=== PATIENT | female | born 1970 | race Caucasian/White ===

== ENCOUNTER 2018-07-02 10:50 | Inpatient (IN) ==
[~2018-07-02 10:50] MED LIST: CELECOXIB 200 MG CAPSULE PO SCH; PREGABALIN 75 MG CAPSULE PO SCH; ceFAZolin 1 GM VIAL IV SCH; oxyCODONE 10 MG TAB.ER.12H PO SCH
[2018-07-02 12:00] LABS: Appearance,Urine HAZY; Bacteria,Urine FEW /hpf (0); Bilirubin,Urine NEG (NEG); Color,Urine YELLOW; Glucose,Urine (UA) NEGATIVE (NEG); Leukocyte Esterase,Urine 25 /uL (NEG); Mucus,Urine FEW /hpf (0); Protein,Urine NEG (NEG); Specific Gravity,Urine 1.008 (1.000-1.035); Urine Blood NEG mg/dL (<0.03); Urine RBC 0 /hpf (0-1); Urine Squamous Epithelial Cell 1 /hpf (0-4); Urine WBC 4 /hpf (0-4); Urobilinogen,Urine NEG (NEG)
[2018-07-02 12:36] LABS: Basophils # (Auto) 0 K/mcL (0.0-0.3); Basophils % (Auto) 0.6 % (0.0-2.0); Eosinophils # (Auto) 0.3 K/mcL (0.0-0.7); Eosinophils % (Auto) 5.1 % (0.0-7.0); Granulocytes % (Auto) 65.8 % (38.0-78.0); Lymphocytes # (Auto) 1.1 K/mcL (1.5-4.8); Lymphocytes % (Auto) 19.8 % (15.5-49.0); Mean Cell Volume 90.4 fL (80.0-100.0); Mean Corpuscular HGB Conc 32.8 g/dL (31.0-36.0); Mean Corpuscular Hemoglobin 29.6 pg (26.0-34.0); Monocytes # (Auto) 0.5 K/mcL (0.1-0.9); Monocytes % (Auto) 8.7 % (1.0-12.0); Platelet Count 273 K/mcL (140-440); RBC 3.99 M/mcL (4.00-5.20)
[2018-07-02 13:01] LABS: Blood Urea Nitrogen 4 mg/dl (6-20)
[2018-07-02] MEDS ORDERED: IPRATROPIUM/ALBUTEROL 3 ML AMPUL.NEB NEB ONE (13:52)
[2018-07-02] MEDS ORDERED: LIDOCAINE HCL/PF 100 MG/5 ML SYRINGE IV ONE (15:00)
[2018-07-02] MEDS ORDERED: KETAMINE 100 MG/ML ML IV ONE (15:00)
[2018-07-02] MEDS ORDERED: ePHEDrine 50 MG/ML AMPUL IV ONE (15:00)
[2018-07-02] MEDS ORDERED: MIDAZOLAM 2 MG/2 ML VIAL IV ONE (15:00)
[2018-07-02] MEDS ORDERED: SUCCINYLCHOLINE 20 MG/ML ML IV ONE (15:00)
[2018-07-02] MEDS ORDERED: fentaNYL 250 MCG/5 ML VIAL IV ONE (15:00)
[2018-07-02] MEDS ORDERED: DEXAMETHASONE 10 MG/ML VIAL IV ONE (15:00)
[2018-07-02] MEDS ORDERED: PROPOFOL 200 MG/20 ML VIAL IV ONE (15:00)
[2018-07-02] MEDS ORDERED: ONDANSETRON 4 MG/2 ML VIAL IV ONE (15:00)
[2018-07-02] MEDS ORDERED: GENTAMICIN SULFATE 800 MG/20 ML VIAL IR ONE (15:45)
[2018-07-02] MEDS ORDERED: ePHEDrine 50 MG/ML AMPUL IV PRN (16:14)
[2018-07-02] MEDS ORDERED: ACETAMINOPHEN 1,000 MG/100 ML BOTTLE IV ONE (16:14)
[2018-07-02] MEDS ORDERED: METHOCARBAMOL 1,000 MG/10 ML VIAL IV PRN (16:14)
[2018-07-02] MEDS ORDERED: PROMETHAZINE 25 MG/ML VIAL IV PRN (16:14)
[2018-07-02] MEDS ORDERED: HYDROmorphone 2 MG/ML VIAL IV PRN (16:14)
[2018-07-02] MEDS ORDERED: MEPERIDINE 25 MG/ML SYRINGE IV PRN (16:14)
[2018-07-02] MEDS ORDERED: ATROPINE SULFATE 0.4 MG/ML VIAL IV PRN (16:14)
[2018-07-02] MEDS ORDERED: diphenhydrAMINE 50 MG/ML VIAL IV PRN (16:14)
[2018-07-02] MEDS ORDERED: FLUMAZENIL 0.1 MG/ML ML IV PRN (16:14)
[2018-07-02] MEDS ORDERED: NALOXONE HCL 0.4 MG/ML VIAL IV PRN (16:14)
[2018-07-02] MEDS ORDERED: METOPROLOL TARTRATE 5 MG/5 ML VIAL IV PRN (16:14)
[2018-07-02] MEDS ORDERED: IPRATROPIUM/ALBUTEROL 3 ML AMPUL.NEB NEB PRN (16:14)
[2018-07-02] MEDS ORDERED: ONDANSETRON 4 MG/2 ML VIAL IV PRN ×2 (16:14→16:25)
--- NOTE | 2018-07-02 16:23 | Brief Operative Note ---
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
--- NOTE | 2018-07-02 16:24 | Discharge Summary ---
Ortho Discharge - TSA - Patient Instructions Diet: Regular Diet Activity: non weight bearing Total Shoulder Protocol: Leave immobilizer in place except for bathing and ROM. Abduction pillow. Continue to wear sling until seen by physician. Codman Pendulum : These exercises use momentum produced by your body to move your shoulder joint. Bend your knees and shift your weight to your front leg, then back, allowing your arm to swing in the same directions. Using the same technique, alternately shift your weight between your right and left legs, allowing your arm to swing from side to side. These exercises are also performed in counterclockwise and clockwise circular motions. Typically these exercises are performed several times per day, for a set number repetitions or minutes, such as 20 times in a row or 5 minutes at a time. Dressing Care: May shower in 2 days - Follow Up Plan Disposition: Home, Self-Care Prognosis: Good Rehab Potential: Good I certify that the patient requires SNF services: No Overall status at discharge: patient is progressing back to baseline
[2018-07-02] MEDS ORDERED: POLYETHYLENE GLYCOL 3350 17 GM PACKET PO PRN (16:25)
[2018-07-02] MEDS ORDERED: BENZOCAINE/MENTHOL 1 LOZENGE PO PRN (16:25)
[2018-07-02] MEDS ORDERED: METHOCARBAMOL 750 MG TABLET PO PRN (16:25)
[2018-07-02] MEDS ORDERED: MAGNESIUM HYDROXIDE 30 ML ORAL.SUSP PO PRN (16:25)
[2018-07-02] MEDS ORDERED: ONDANSETRON ODT 4 MG TABLET SL PRN (16:25)
[2018-07-02] MEDS ORDERED: BISACODYL 10 MG SUPP.RECT PR PRN (16:25)
[2018-07-02] MEDS ORDERED: TRANEXAMIC ACID 1,000 MG/10 ML VIAL IV ONE (16:25)
[2018-07-02] MEDS ORDERED: FLEETS ADULT ENEMA PR PRN (16:25)
[2018-07-02] MEDS: HYDROcodone/APAP 10/325MG TABLET PO PRN ×3 (17:45→23:50)
[2018-07-02] MEDS: 0.9 % SODIUM CHLORIDE 1,000 ML IV SCH (17:49)
[2018-07-02] MEDS ORDERED: SENNOSIDES 1 TABLET PO SCH (21:00)
[2018-07-02] MEDS: DOCUSATE SODIUM 100 MG CAPSULE PO SCH (21:29)
[2018-07-02] MEDS: 0.9 % SODIUM CHLORIDE 10 ML SYRINGE IV SCH (21:31)
[2018-07-02] MEDS: ceFAZolin 1 GM VIAL IV SCH (22:47)
[2018-07-03] MEDS: 0.9 % SODIUM CHLORIDE 1,000 ML IV SCH ×2 (02:21→09:36)
[2018-07-03] MEDS: HYDROcodone/APAP 10/325MG TABLET PO PRN ×3 (04:37→12:55)
[2018-07-03] MEDS: 0.9 % SODIUM CHLORIDE 10 ML SYRINGE IV SCH (04:38)
--- NOTE | 2018-07-03 07:21 | Orthopedic Progress Note ---
Subjective Patient information: Note initiated : 07/03/18 at 7:19 am Service Date, if different from initiated Date: [] Patient: Huma Lawrence 48 y/o F admitted on 07/02/18 for Reverse Total Shoulder Arthroplasty Revision Right. Chief Complaint: [POD #1 s/p left reverse total shoulder revision Patient doing very well today. Has moderate pain but denies CP, SOB, numbness, tingling. Was concerned because she rolled over on her left shoulder.] Objective Vital signs: Vital Signs Temp Pulse Resp BP BP Pulse Ox 07/03/18 06:33 98 F 18 141/84 92 07/03/18 03:46 98.1 F 82 18 151/85 94 07/03/18 02:30 93 H 158/94 83 L 07/03/18 00:00 98.1 F 84 18 150/85 95 07/02/18 22:18 82 155/87 97 07/02/18 22:03 85 146/89 95 07/02/18 21:04 92 H 129/79 88 L 07/02/18 20:50 92 H 136/85 90 07/02/18 20:18 95 H 156/86 90 07/02/18 20:03 94 H 149/83 91 07/02/18 19:18 96 H 146/82 93 07/02/18 19:03 92 H 150/86 92 07/02/18 18:48 96 H 144/83 92 07/02/18 17:48 98.3 F 98 H 137/77 92 07/02/18 17:33 98.3 F 97 H 142/82 90 07/02/18 17:19 98.9 F 103 H 13 101/58 94 07/02/18 17:04 98.8 F 103 H 14 143/56 92 07/02/18 16:59 111 H 17 131/64 92 07/02/18 16:54 118 H 22 113/70 92 07/02/18 16:49 98.2 F 100 H 16 140/72 96 07/02/18 12:00 98.7 F 85 18 125/69 92 Intake and Output 07/02/18 07/03/18 07/03/18 21:59 05:59 13:59 Intake Total 2680 / 2680 2140 / 2140 Output Total 900 / 900 2650 / 2650 800 / 800 Balance 1780 / 1780 -510 / -510 -800 / -800 Intake: IV 100 / 100 1300 / 1300 Sodium Chloride 0.9% 1,000 ml @ 1300 / 1300 125 mls/hr IV .Q8H [facility] Rx#: [id number] Oral 1280 / 1280 840 / 840 IV - Manual Only 1300 / 1300 Output: Void Amount 650 / 650 2650 / 2650 800 / 800 Estimated Blood Loss 250 / 250 Other: Urine Appearance Uretheral ([place]) Clear Urine Color Bright Yellow Uretheral ([place]) Pale Urine Odor Normal # Voids 1 1 Weight 207 lb Intake & Output: Intake & Output 07/02/18 07/03/18 07/03/18 21:59 05:59 13:59 Intake Total 2680 / 2680 2140 / 2140 Output Total 900 / 900 2650 / 2650 800 / 800 Balance 1780 / 1780 -510 / -510 -800 / -800 Weight 207 lb Intake: IV 100 / 100 1300 / 1300 Sodium Chloride 0.9% 1,000 ml @ 1300 / 1300 125 mls/hr IV .Q8H [facility] Rx#: [id number] Oral 1280 / 1280 840 / 840 IV - Manual Only 1300 / 1300 Output: Void Amount 650 / 650 2650 / 2650 800 / 800 Estimated Blood Loss 250 / 250 Other: Urine Appearance Uretheral ([place]) Clear Urine Color Bright Yellow Uretheral ([place]) Pale Urine Odor Normal # Voids 1 1 Incision: Yes healing, No draining, No red, No swollen, No inflamed, Yes clean and dry Incision clean and dry: Yes Dressing: Yes clean, Yes dry, Yes intact, Yes splint in place Weight bearing status: non Neurological exam IM: Yes alert, Yes oriented X3, Yes motor sensory intact, Yes neurovascular intact Extremities exam IM: Yes neurovascular intact - Periperhal Pulses Peripheral pulses: 2+: radial (L), radial (R) - Diagnostic Results Shoulder x-ray: image reviewed (AP of left shoulder: reverse total shoulder in good alignment. Components articulating well) - Labs CBC & BMP: 07/03/18 04:30 07/02/18 11:30 Labs: 07/03/18 07/02/18 04:30 11:30 Hgb 10.9 L 11.8 L Hct 33.0 L 36.1 Assessment and Plan (1) History of shoulder surgery POD #1 s/p left reverse total shoulder arthroplasty: -d/c to home today, lives at alf -pain control -NWB in brace at all times -may wiggle fingers frequently. Do not remove splint unless to bath or dress. No PT -karri. Keep CDI with dressing -f/u in 2 weeks in office for post op Status: Acute
--- NOTE | 2018-07-03 07:35 | Operative Note ---
DATE OF OPERATION: 07/02/2018 PREOPERATIVE DIAGNOSIS: Left shoulder instability status post reverse total shoulder arthroplasty. POSTOPERATIVE DIAGNOSIS: Left shoulder instability status post reverse total shoulder arthroplasty with hematoma. PROCEDURES: 1. Left shoulder revision reverse total shoulder arthroplasty. 2. Left shoulder irrigation and debridement with hematoma evacuation. SURGEON: Christian George MD CRISIS WORKER: Ashley Loja PA-C ANESTHESIA: General. IMPLANTS: Delta Xtend glenosphere 42 mm Eccentric, Delta Xtend humeral spacer +9 x2, Delta Xtend humeral polyethylene cup 42 +6 retentive. FINDINGS: 1. Unstable reverse total shoulder arthroplasty with no evidence of loosening components. 2. Large hematoma. No evidence of infection. INDICATION: The patient is a 48-year-old female who has had a previous reverse total shoulder arthroplasty that went on to dislocate. We did open reduction. It was felt to be stable but it redislocated and she has developed a hematoma. We talked about different options and felt that a revision reverse total shoulder arthroplasty would be our best bet at this point. She elected to proceed. The risks and benefits were discussed with the patient in detail including, but not limited to, the risks of anesthesia, problems with the heart or lungs related to anesthesia, infection, compromise or injury to the nerves and blood vessels, deep venous thrombosis, pulmonary embolism, pneumonia, continued pain after surgery, worsening pain or symptoms after surgery, swelling, loss of motion, re-tear or failure of repair site, and need for repeat surgery. OPERATIVE NOTE: The patient was seen preoperatively. Site was signed and all questions were answered. She was then transferred to the operating room and given 2 grams Ancef and general anesthesia was administered without complication. She was placed in the beach chair position with all prominences well-padded. She was prepped and draped in the usual sterile fashion from the fingers up to the neck. We made an incision through her old anterior based incision through the skin and subcutaneous tissue and bone windows were created medially and laterally. We dissected down and split the deltopectoral repair and came down to a large hematoma. This hematoma was evacuated and thoroughly irrigated. The shoulder was anteriorly dislocated. I removed the two 9 mm stacks as well as the polyethylene. We placed retractors and came down to the glenosphere. The glenosphere was removed. We inspected and the metaglene was found to be well fixed. We thoroughly irrigated with saline and IrriSept. I then placed a 42 mm eccentric glenosphere with the eccentric facing anterior. We then trialed with a +9 humeral spacer x2 as well as a +6 42 retentive Delta Xtend humeral polyethylene cup. This gave us excellent stability and full range of motion of the shoulder with moderate but not over-tension of the deltoid. I then placed the final implant, again irrigating. We took the shoulder through range of motion and it had good range of motion and excellent stability. We closed the deltopectoral interval with 0 Vicryl. The subcutaneous layer was closed in layers with 3-0 Monocryl and karri in the skin. She was dressed with Xeroform 4x4s, ABD and Metapore tape. She was placed into a shoulder immobilizer. She was then extubated, transferred to a stretcher and taken to the PACU in stable condition. SPECIMENS: None. COMPLICATIONS: None. DRAINS: None. DISPOSITION: To Post-Anesthetic Care Unit in stable condition. [email or web address] Job ID: [id number] Doc ID: [id number] Eric George MD
[2018-07-03] MEDS: ceFAZolin 1 GM VIAL IV SCH (07:36)
--- NOTE | 2018-07-03 08:32 | XRay Report ---
CLINICAL INFORMATION: Postsurgical follow-up TECHNIQUE: AP and Y views of the left shoulder COMPARISON: Previous postoperative evaluation dated 06/17/2018 FINDINGS: Status post left reverse shoulder arthroplasty. Patient has apparently undergone revision since prior postoperative examination. There are surgical karri overlying the left shoulder. Alignment appears anatomic IMPRESSION: Status post left reverse shoulder arthroplasty Interpreted and Authenticated by: Gurdeep Mooney 07/03/18
[2018-07-03] MEDS: DOCUSATE SODIUM 100 MG CAPSULE PO SCH (09:35)
== END 2018-07-03 14:30 | disposition home or self-care (01) | DRG 483 ==
LOC: MEDSUR 10:50
PROVIDERS: ADMIT Orthopaedic Surgery Sports Medicine; ATTEND Orthopaedic Surgery Sports Medicine

== ENCOUNTER 2018-11-24 12:49 | Inpatient (IN) ==
[2018-11-16 11:36] LABS: Basophils # (Auto) 0 K/mcL (0.0-0.3); Basophils % (Auto) 0.5 % (0.0-2.0); Eosinophils # (Auto) 0 K/mcL (0.0-0.7); Eosinophils % (Auto) 0.7 % (0.0-7.0); Granulocytes % (Auto) 59.1 % (38.0-78.0); Lymphocytes # (Auto) 1.8 K/mcL (1.5-4.8); Lymphocytes % (Auto) 32.3 % (15.5-49.0); Mean Cell Volume 88.9 fL (80.0-100.0); Mean Corpuscular HGB Conc 32.7 g/dL (31.0-36.0); Monocytes # (Auto) 0.4 K/mcL (0.1-0.9); Monocytes % (Auto) 7.4 % (1.0-12.0); Platelet Count 347 K/mcL (140-440); RBC 4.84 M/mcL (4.00-5.20); Red Cell Distribution Width 14.1 % (11.5-14.5)
[2018-11-16 11:42] LABS: Blood Urea Nitrogen 5 mg/dl (6-20)
[2018-11-16 12:16] LABS: Appearance,Urine HAZY; Bilirubin,Urine NEG (NEG); Color,Urine YELLOW; Glucose,Urine (UA) NEGATIVE (NEG); Leukocyte Esterase,Urine NEG /uL (NEG); Protein,Urine NEG (NEG); Specific Gravity,Urine 1.015 (1.000-1.035); Urine Blood NEG mg/dL (<0.03); Urobilinogen,Urine NEG (NEG)
[2018-11-24] MEDS ORDERED: fentaNYL 100 MCG/2 ML VIAL IV ONE (14:45)
[2018-11-24] MEDS ORDERED: ePHEDrine 50 MG/ML AMPUL IV ONE (14:45)
[2018-11-24] MEDS ORDERED: DEXAMETHASONE 10 MG/ML VIAL IV ONE (14:45)
[2018-11-24] MEDS ORDERED: PHENYLEPHRINE 10 MG/ML VIAL IV ONE (14:45)
[2018-11-24] MEDS ORDERED: SUCCINYLCHOLINE 20 MG/ML ML IV ONE (14:45)
[2018-11-24] MEDS ORDERED: PROPOFOL 200 MG/20 ML VIAL IV ONE (14:45)
[2018-11-24] MEDS ORDERED: KETAMINE 100 MG/ML ML IV ONE (14:45)
[2018-11-24] MEDS ORDERED: ONDANSETRON 4 MG/2 ML VIAL IV ONE (14:45)
[2018-11-24] MEDS ORDERED: GLYCOPYRROLATE 0.2 MG/ML VIAL IV ONE (14:45)
[2018-11-24] MEDS ORDERED: MIDAZOLAM 2 MG/2 ML VIAL IV ONE (14:45)
[2018-11-24] MEDS ORDERED: TRANEXAMIC ACID 1,000 MG/10 ML VIAL IV ONE ×2 (14:45→16:44)
[2018-11-24] MEDS ORDERED: LIDOCAINE HCL/PF 100 MG/5 ML SYRINGE IV ONE (14:45)
[2018-11-24] MEDS ORDERED: METHOCARBAMOL 1,000 MG/10 ML VIAL IV PRN (15:24)
[2018-11-24] MEDS ORDERED: ONDANSETRON 4 MG/2 ML VIAL IV PRN (15:24)
[2018-11-24] MEDS ORDERED: BENZOCAINE/MENTHOL 1 LOZENGE PO PRN (15:24)
[2018-11-24] MEDS ORDERED: NALOXONE HCL 0.4 MG/ML VIAL IV PRN (15:24)
[2018-11-24] MEDS ORDERED: LACTATED RINGERS 250 ML IV PRN (15:24)
[2018-11-24] MEDS ORDERED: ACETAMINOPHEN 1,000 MG/100 ML BOTTLE IV ONE (15:24)
[2018-11-24] MEDS ORDERED: IPRATROPIUM/ALBUTEROL 3 ML AMPUL.NEB NEB PRN ×2 (15:24→15:58)
[2018-11-24] MEDS ORDERED: fentaNYL 100 MCG/2 ML VIAL IV PRN (15:24)
[2018-11-24] MEDS ORDERED: FLUMAZENIL 0.1 MG/ML ML IV PRN (15:24)
[2018-11-24] MEDS ORDERED: LACTATED RINGERS 1,000 ML IV SCH (15:30)
--- NOTE | 2018-11-24 15:57 | Brief Operative Note ---
Pre-op diagnosis: left reverse tsa instability Post-op diagnosis: same Procedure: revision left reverse tsa Grafts/Implants: Yes Anesthesia: GETA Complications: none Surgeon: Gurdeep George Divemaster: Ashley Loja Estimated blood loss (cc): 100 Specimens Removed/Pathology: none sent Condition: stable Disposition: PACU
[2018-11-24] MEDS ORDERED: CALCIUM CARBONATE 500 MG TAB.CHEW CHEWED PRN (15:58)
[2018-11-24] MEDS ORDERED: POLYETHYLENE GLYCOL 3350 17 GM PACKET PO PRN (15:58)
[2018-11-24] MEDS ORDERED: ALBUTEROL SULFATE 1 PUFF INHALER INH PRN (15:58)
[2018-11-24] MEDS ORDERED: ZOLPIDEM 5 MG TABLET PO PRN (15:58)
[2018-11-24] MEDS ORDERED: traZODone HCL 50 MG TABLET PO PRN (15:58)
[2018-11-24] MEDS ORDERED: FLUTICASONE PROPIONATE SPRAY.NAS NS PRN (15:58)
[2018-11-24] MEDS ORDERED: KETOCONAZOLE 2% TOP CRM 15GM TUBE TOPICAL PRN (15:58)
--- NOTE | 2018-11-24 15:58 | Discharge Summary ---
Ortho Discharge - TSA - Patient Instructions Diet: Regular Diet Activity: non weight bearing Total Shoulder Protocol: Leave immobilizer in place except for bathing and ROM. Abduction pillow. Continue to wear sling until seen by physician. Codman Pendulum : These exercises use momentum produced by your body to move your shoulder joint. Bend your knees and shift your weight to your front leg, then back, allowing your arm to swing in the same directions. Using the same technique, alternately shift your weight between your right and left legs, allowing your arm to swing from side to side. These exercises are also performed in counterclockwise and clockwise circular motions. Typically these exercises are performed several times per day, for a set number repetitions or minutes, such as 20 times in a row or 5 minutes at a time. Dressing Care: May shower in 2 days - Follow Up Plan Follow Up Appointments: Ashley Loja PA-C [Physician Logistics Clerk] - 12/09/18 2:00 pm Disposition: Home, Self-Care Prognosis: Good Rehab Potential: Good I certify that the patient requires SNF services: No Overall status at discharge: patient is progressing back to baseline
[2018-11-24] MEDS ORDERED: GENTAMICIN SULFATE 800 MG/20 ML VIAL IR ONE (16:29)
--- NOTE | 2018-11-24 16:57 | Operative Note ---
DATE OF OPERATION: 11/24/2018 PREOPERATIVE DIAGNOSIS: Left reverse total shoulder arthroplasty instability. POSTOPERATIVE DIAGNOSIS: Left reverse total shoulder arthroplasty instability. PROCEDURE: Revision left reverse total shoulder arthroplasty. SURGEON: Eric George M.D. TAILING MACHINE OPERATOR SURGEON: Ashley Loja PA-C. ANESTHESIA: General. ESTIMATED BLOOD LOSS: 100 mL. COMPLICATIONS: None noted. SPECIMENS REMOVED: Culture x1. DRAINS: None. IMPLANTS: DePuy Delta XTEND glenosphere 42 mm eccentric; DePuy Delta XTEND humeral spacer +9 mm x2; DePuy Delta XTEND humeral polyethylene cup 42, +6 standard. INDICATIONS: The patient has had multiple problems status post reverse total shoulder arthroplasty with instability. After the last revision, she has undergone another dislocation x2. We talked about changing alignment to try to stabilize the shoulder versus converting to hardware removal and [place] in the shoulder. She wanted to proceed with the first option which I think is reasonable at this point. After a long discussion about treatment options, the patient elected to proceed with a revision reverse total shoulder arthroplasty. The risks and benefits were discussed with the patient in detail including, but not limited to, the risks of anesthesia, problems with the heart or lungs related to anesthesia, infection, compromise or injury to the nerves and blood vessels, deep venous thrombosis, pulmonary embolism, pneumonia, continued pain after surgery, worsening pain or symptoms after surgery, swelling, loss of motion, instability, fracture, arm length discrepancy, and need for repeat surgery. DESCRIPTION OF PROCEDURE: The patient was seen in the preanesthesia waiting room where all questions were answered and the correct side and site were identified and marked. The patient was transferred to the operating room and administered the anesthetic and given preoperative antibiotics. A time-out was then called. The patient was placed in the modified beach chair position with all prominences well padded. The extremity was prepped and draped from the fingers up to the neck. A standard deltopectoral skin incision was created. Dissection was carried down to the deltopectoral groove and the cephalic vein was isolated medially and retracted laterally with the deltoid. We came down to the implant which was dislocated anteriorly. I removed the polyethylene followed by the two spacers. I then placed retractors and went deep down to the glenosphere. The glenosphere was removed. The eccentricity was at the 9 o'clock position on the shoulder. I took cultures, and we sent this off, but it did not appear to be infected. We removed some of the fibrinous tissue around. I palpated underneath the glenoid and Metaglene, and there were no bony prominences or other abnormalities that may be impinging and causing a dislocation. I then placed a new Delta glenosphere 42 mm eccentric with the eccentricity at around the 7:30 position on the shoulder. I then placed two new humeral spacers +9 mm. I then placed a 42, +6 standard polyethylene cup as I felt the retentive may have been levering. We trialed this and had excellent stability. It was very difficult to re-dislocated. I took this and I placed the final humeral polyethylene cup 42 mm +6 standard. This was reduced. I took her through range of motion in all motions, and I was unable to easily dislocate this. I felt that this was our best option for stability. The humeral stem was at about 0 degrees eversion and because it was cemented we could not change it. We irrigated with 3 liters of antibiotic saline and closed the subscapularis with # 2 FiberWire. We irrigated again and closed the deltopectoral interval with several # 0 Vicryl figure of eight sutures. The subcutaneous layer was closed with 2-0 Vicryl and the skin was closed with 4-0 Monocryl and karri. A sterile pressure dressing was applied and the patient was placed into an abduction sling. All needle and sponge counts were correct. The patient was transferred to the recovery room in stable condition. [email or web address] Job ID: [id number] Doc ID: [id number] Eric George MD
--- NOTE | 2018-11-24 17:19 | XRay Report ---
CLINICAL INFORMATION: post surgery COMPARISON: None. FINDINGS: Shoulder prosthesis anatomically aligned. No osseous abnormality. Soft tissue swelling is recommended IMPRESSION: Negative Interpreted and Authenticated by: Gurdeep Brewer 11/24/18
[2018-11-24] MEDS: risperiDONE 1 MG TABLET PO SCH (20:07)
[2018-11-24] MEDS: CALCIUM W/VIT D3 500 MG TABLET PO SCH (20:07)
[2018-11-24] MEDS: clonazePAM 1 MG TABLET PO SCH (20:07)
[2018-11-24] MEDS: ACETAMINOPHEN 500 MG TABLET PO PRN (20:08)
[2018-11-24] MEDS: BENZTROPINE 1 MG TABLET PO SCH (20:09)
[2018-11-24] MEDS ORDERED: traZODone HCL 100 MG TABLET PO SCH (21:00)
[2018-11-24] MEDS ORDERED: MONTELUKAST 10 MG TABLET PO SCH (21:00)
[2018-11-24] MEDS: FLUTICASONE/SALMETEROL 500/50 INHALER #14 INH SCH (23:53)
[2018-11-24] MEDS: Oxcarbazepine [Trileptal] 600 mg Tab PO SCH (23:54)
[2018-11-25] MEDS: ACETAMINOPHEN 500 MG TABLET PO PRN (01:53)
--- NOTE | 2018-11-25 07:51 | Orthopedic Progress Note ---
Subjective Patient information: Note initiated : 11/25/18 at 7:50 am Service Date, if different from initiated Date: [] Patient: Huma Lawrence 48 y/o F admitted on 11/24/18 for Left Reverse Total Shoulder Arthroplasty Revision. Chief Complaint: [] Interval history: doing well. no pain Objective Vital signs: Vital Signs Temp Pulse Resp BP BP Pulse Ox 11/25/18 02:41 98.0 F 88 20 127/73 92 11/24/18 23:39 97.4 F 104 H 12 132/78 92 11/24/18 22:07 98.3 F 97 H 22 111/65 93 11/24/18 20:06 89 121/69 94 11/24/18 19:37 110 H 128/71 96 11/24/18 19:06 88 148/80 97 11/24/18 18:52 85 138/77 97 11/24/18 18:36 93 H 149/84 86 L 11/24/18 18:06 76 130/76 87 L 11/24/18 17:37 98.6 F 87 13 125/65 96 11/24/18 17:22 100 H 22 151/62 90 11/24/18 17:07 87 22 113/57 93 11/24/18 16:52 87 18 115/57 97 11/24/18 16:37 97.4 F 88 15 112/53 97 11/24/18 16:32 89 14 110/50 96 11/24/18 16:27 93 H 14 111/52 94 11/24/18 16:22 97.3 F 76 10 L 105/51 93 11/24/18 13:46 97.2 F 84 125/75 93 Intake and Output 11/24/18 11/25/18 11/25/18 21:59 05:59 13:59 Intake Total 1840 1979 Output Total 950 2401 1 Balance 890 -421 -1 Intake: IV 100 Oral 240 1980 IV - Manual Only 1500 Output: Void Amount 800 2400 # of times incontinent of urine 1 1 Estimated Blood Loss 150 Other: Meal Cranberry juice Percent of Meal Consumed 100% Feeding Ability Independent Urine Appearance Clear Clear Urine Color Pale Pale Urine Odor Normal Normal # Voids 1 Weight 216 lb Intake & Output: Intake & Output 11/24/18 11/25/18 11/25/18 21:59 05:59 13:59 Intake Total 1841979 Output Total 950 2401 1 Balance 890 -421 -1 Weight 216 lb Intake: IV 100 Oral 240 1979 IV - Manual Only 1500 Output: Void Amount 800 2400 # of times incontinent of urine 1 1 Estimated Blood Loss 150 Other: Meal Cranberry juice Percent of Meal Consumed 100% Feeding Ability Independent Urine Appearance Clear Clear Urine Color Pale Pale Urine Odor Normal Normal # Voids 1 Incision: Yes healing Incision clean and dry: Yes Dressing: Yes clean, Yes dry, Yes intact Weight bearing status: non Neurological exam IM: Yes alert, Yes normal gait, Yes oriented X3, Yes motor sensory intact, Yes neurovascular intact Extremities exam IM: No calf tenderness, Yes Foot pink and warm, Yes neurovascular intact - Labs CBC & BMP: 11/16/18 09:14 11/16/18 09:14 Labs: 11/16/18 09:14 Hgb 14.1 Hct 43.0 Assessment and Plan (1) History of shoulder surgery pod 1 s/p reverse tsa nwb pain control sling home today Status: Acute
[2018-11-25] MEDS ORDERED: POTASSIUM CHLORIDE 20 MEQ TABLET PO SCH (08:00)
[2018-11-25] MEDS: clonazePAM 1 MG TABLET PO SCH (08:33)
[2018-11-25] MEDS: BENZTROPINE 1 MG TABLET PO SCH (08:33)
[2018-11-25] MEDS: risperiDONE 1 MG TABLET PO SCH (08:33)
[2018-11-25] MEDS: CALCIUM W/VIT D3 500 MG TABLET PO SCH (08:33)
[2018-11-25] MEDS: Oxcarbazepine [Trileptal] 600 mg Tab PO SCH (08:35)
[2018-11-25] MEDS: FLUTICASONE/SALMETEROL 500/50 INHALER #14 INH SCH (08:35)
[2018-11-25] MEDS ORDERED: DOXYCYCLINE HYCLATE 50 MG CAPSULE PO SCH (09:00)
[2018-11-26] MEDS ORDERED: DOXYCYCLINE HYCLATE 100 MG TABLET.ORL PO SCH (09:00)
== END 2018-11-25 11:20 | disposition home or self-care (01) | DRG 483 ==
LOC: MEDSUR 12:49
PROVIDERS: ADMIT Orthopaedic Surgery Sports Medicine; ATTEND Orthopaedic Surgery Sports Medicine

== ENCOUNTER 2018-12-02 15:04 | Inpatient (IN) ==
[2018-12-02 16:17] LABS: Basophils # (Auto) 0 K/mcL (0.0-0.3); Basophils % (Auto) 0.5 % (0.0-2.0); Eosinophils # (Auto) 0.2 K/mcL (0.0-0.7); Eosinophils % (Auto) 2.6 % (0.0-7.0); Granulocytes % (Auto) 60.8 % (38.0-78.0); Lymphocytes # (Auto) 1.8 K/mcL (1.5-4.8); Lymphocytes % (Auto) 29.7 % (15.5-49.0); Mean Cell Volume 87.8 fL (80.0-100.0); Mean Corpuscular HGB Conc 32.6 g/dL (31.0-36.0); Monocytes # (Auto) 0.4 K/mcL (0.1-0.9); Monocytes % (Auto) 6.4 % (1.0-12.0); Platelet Count 294 K/mcL (140-440); RBC 4.85 M/mcL (4.00-5.20); Red Cell Distribution Width 13.6 % (11.5-14.5)
[2018-12-02 16:55] LABS: Blood Urea Nitrogen 4 mg/dl (6-20)
[2018-12-02] MEDS ORDERED: GENTAMICIN SULFATE 800 MG/20 ML VIAL IR ONE (17:10)
[2018-12-02] MEDS ORDERED: IPRATROPIUM/ALBUTEROL 3 ML AMPUL.NEB NEB ONE ×2 (17:11→17:12)
[2018-12-02 17:16] LABS: Appearance,Urine HAZY; Bilirubin,Urine NEG (NEG); Color,Urine YELLOW; Glucose,Urine (UA) NEGATIVE (NEG); Leukocyte Esterase,Urine NEG /uL (NEG); Protein,Urine NEG (NEG); Urine Blood NEG mg/dL (<0.03); Urobilinogen,Urine NEG (NEG)
[2018-12-02] MEDS ORDERED: ceFAZolin 1 GM VIAL IV ONE (17:17)
[2018-12-02] MEDS ORDERED: PROPOFOL 200 MG/20 ML VIAL IV ONE (17:45)
[2018-12-02] MEDS ORDERED: NALOXONE HCL 0.4 MG/ML VIAL IV ONE (17:45)
[2018-12-02] MEDS ORDERED: SUCCINYLCHOLINE 20 MG/ML ML IV ONE (17:45)
[2018-12-02] MEDS ORDERED: MIDAZOLAM 5 MG/5 ML VIAL IV ONE (17:45)
[2018-12-02] MEDS ORDERED: TRANEXAMIC ACID 1,000 MG/10 ML VIAL IV ONE ×2 (17:45→19:01)
[2018-12-02] MEDS ORDERED: DEXAMETHASONE 10 MG/ML VIAL IV ONE (17:45)
[2018-12-02] MEDS ORDERED: GLYCOPYRROLATE 0.2 MG/ML VIAL IV ONE (17:45)
[2018-12-02] MEDS ORDERED: fentaNYL 250 MCG/5 ML VIAL IV ONE (17:45)
[2018-12-02] MEDS ORDERED: BUPRENORPHINE HCL 0.3 MG/ML ML IM ONE (17:45)
[2018-12-02] MEDS ORDERED: LIDOCAINE HCL/PF 100 MG/5 ML SYRINGE IV ONE (17:45)
[2018-12-02] MEDS ORDERED: ONDANSETRON 4 MG/2 ML VIAL IV ONE (17:45)
[2018-12-02] MEDS ORDERED: ROCURONIUM 10 MG/ML ML IV ONE (17:45)
[2018-12-02] MEDS ORDERED: PHENYLEPHRINE 10 MG/ML VIAL IV ONE (17:45)
[2018-12-02] MEDS ORDERED: KETAMINE 100 MG/ML ML IV ONE (17:45)
[2018-12-02] MEDS ORDERED: NALBUPHINE 10 MG/ML AMPUL IV ONE (17:45)
--- NOTE | 2018-12-02 19:00 | Brief Operative Note ---
Pre-op diagnosis: failed unstable left reverse tsa Post-op diagnosis: same Procedure: hardware removal left shoulder prosthesis with removal of glenoid component and spacer x 2 humeral component Grafts/Implants: Yes Anesthesia: GETA Complications: none Surgeon: [facility] Tutor: Ashley Loja Estimated blood loss (cc): 100 Specimens Removed/Pathology: none sent Condition: stable Disposition: PACU
[2018-12-02] MEDS ORDERED: METHOCARBAMOL 750 MG TABLET PO PRN (19:01)
[2018-12-02] MEDS ORDERED: FLEETS ADULT ENEMA PR PRN (19:01)
[2018-12-02] MEDS ORDERED: BENZOCAINE/MENTHOL 1 LOZENGE PO PRN (19:01)
[2018-12-02] MEDS ORDERED: BISACODYL 10 MG SUPP.RECT PR PRN (19:01)
[2018-12-02] MEDS ORDERED: POLYETHYLENE GLYCOL 3350 17 GM PACKET PO PRN ×2 (19:01→19:03)
[2018-12-02] MEDS ORDERED: KETOROLAC 15 MG/ML VIAL IV PRN (19:01)
[2018-12-02] MEDS ORDERED: MAGNESIUM HYDROXIDE 30 ML ORAL.SUSP PO PRN (19:01)
[2018-12-02] MEDS ORDERED: ONDANSETRON 4 MG/2 ML VIAL IV PRN (19:01)
--- NOTE | 2018-12-02 19:01 | Discharge Summary ---
Ortho Discharge - TSA - Patient Instructions Diet: Regular Diet Activity: non weight bearing Total Shoulder Protocol: Leave immobilizer in place except for bathing and ROM. Abduction pillow. Continue to wear sling until seen by physician. Codman Pendulum : These exercises use momentum produced by your body to move your shoulder joint. Bend your knees and shift your weight to your front leg, then back, allowing your arm to swing in the same directions. Using the same technique, alternately shift your weight between your right and left legs, allowing your arm to swing from side to side. These exercises are also performed in counterclockwise and clockwise circular motions. Typically these exercises are performed several times per day, for a set number repetitions or minutes, such as 20 times in a row or 5 minutes at a time. Dressing Care: May shower in 2 days, Aquacel Ag - leave on for 5 days - Follow Up Plan Disposition: Home, Self-Care Prognosis: Good Rehab Potential: Good I certify that the patient requires SNF services: No Overall status at discharge: patient is progressing back to baseline
[2018-12-02] MEDS ORDERED: IPRATROPIUM/ALBUTEROL 3 ML AMPUL.NEB NEB PRN ×2 (19:03→19:57)
[2018-12-02] MEDS ORDERED: FLUTICASONE PROPIONATE SPRAY.NAS NS PRN (19:03)
[2018-12-02] MEDS ORDERED: KETOCONAZOLE 2% TOP CRM 15GM TUBE TOPICAL PRN (19:03)
[2018-12-02] MEDS ORDERED: ALBUTEROL SULFATE 1 PUFF INHALER INH PRN (19:03)
[2018-12-02] MEDS ORDERED: ZOLPIDEM 5 MG TABLET PO PRN (19:03)
[2018-12-02] MEDS ORDERED: ACETAMINOPHEN 500 MG TABLET PO PRN (19:03)
[2018-12-02] MEDS ORDERED: traZODone HCL 50 MG TABLET PO PRN (19:03)
[2018-12-02] MEDS ORDERED: 0.9 % SODIUM CHLORIDE 1,000 ML IV SCH (19:15)
[2018-12-02] MEDS ORDERED: FLUMAZENIL 0.1 MG/ML ML IV PRN (19:57)
[2018-12-02] MEDS ORDERED: PROMETHAZINE 25 MG/ML VIAL IV PRN (19:57)
[2018-12-02] MEDS ORDERED: NALOXONE HCL 0.4 MG/ML VIAL IV PRN (19:57)
[2018-12-02] MEDS ORDERED: METHOCARBAMOL 1,000 MG/10 ML VIAL IV PRN (19:57)
[2018-12-02] MEDS ORDERED: MEPERIDINE 25 MG/ML SYRINGE IV PRN (19:57)
[2018-12-02] MEDS ORDERED: LACTATED RINGERS 250 ML IV PRN (19:57)
[2018-12-02] MEDS ORDERED: KETOROLAC 30 MG/ML VIAL IV PRN (19:57)
[2018-12-02] MEDS ORDERED: fentaNYL 100 MCG/2 ML VIAL IV PRN (19:57)
[2018-12-02] MEDS ORDERED: ACETAMINOPHEN 1,000 MG/100 ML BOTTLE IV ONE (19:57)
[2018-12-02] MEDS ORDERED: LACTATED RINGERS 1,000 ML IV SCH (20:00)
[2018-12-02] MEDS ORDERED: ALBUTEROL SULFATE 2.5 MG/3 ML NEBULIZER NEB PRN (21:21)
[2018-12-02] MEDS: risperiDONE 1 MG TABLET PO SCH (22:20)
[2018-12-02] MEDS: SENNOSIDES 1 TABLET PO SCH (22:20)
[2018-12-02] MEDS: traZODone HCL 100 MG TABLET PO SCH (22:20)
[2018-12-02] MEDS: MONTELUKAST 10 MG TABLET PO SCH (22:20)
[2018-12-02] MEDS: clonazePAM 1 MG TABLET PO SCH (22:20)
[2018-12-02] MEDS: DOCUSATE SODIUM 100 MG CAPSULE PO SCH (22:20)
[2018-12-02] MEDS: FLUTICASONE/SALMETEROL 500/50 INHALER #14 INH SCH (22:26)
[2018-12-02] MEDS: Oxcarbazepine [Trileptal] 600 MG PO SCH (22:26)
[2018-12-02] MEDS: 0.9 % SODIUM CHLORIDE 10 ML SYRINGE IV SCH (22:27)
[2018-12-02] MEDS: BENZTROPINE 1 MG TABLET PO SCH (22:37)
[2018-12-02] MEDS: ceFAZolin 1 GM VIAL IV SCH (23:40)
[2018-12-03] MEDS: HYDROcodone/APAP 10/325MG TABLET PO PRN ×5 (05:36→20:30)
[2018-12-03] MEDS: 0.9 % SODIUM CHLORIDE 10 ML SYRINGE IV SCH ×3 (05:39→23:19)
--- NOTE | 2018-12-03 05:39 | Orthopedic Progress Note ---
Subjective Patient information: Note initiated : 12/03/18 at 5:38 am Service Date, if different from initiated Date: [] Patient: Huma Lawrence 48 y/o F admitted on 12/02/18 for Left Shoulder Hardware Removal . Chief Complaint: [] Interval history: doing ok. painful Objective Vital signs: Vital Signs Temp Pulse Resp BP BP BP Pulse Ox 12/03/18 04:31 98.0 F 80 20 113/69 92 12/03/18 01:38 94 12/03/18 01:30 89 L 12/02/18 23:55 93 12/02/18 23:41 98.5 F 78 18 114/67 95 12/02/18 23:11 88 126/75 94 12/02/18 22:12 70 107/72 12/02/18 21:42 81 141/69 91 12/02/18 21:27 84 120/72 88 L 12/02/18 21:11 88 87 L 12/02/18 21:10 90 12/02/18 20:56 90 121/67 85 L 12/02/18 20:53 94 H 127/74 85 L 12/02/18 20:35 97.6 F 90 22 170/60 93 12/02/18 20:20 97.6 F 103 H 21 180/70 83 L 12/02/18 20:05 97.3 F 95 H 19 187/63 90 12/02/18 20:00 92 H 17 168/62 91 12/02/18 19:55 96 H 17 172/64 91 12/02/18 19:50 97.3 F 96 H 15 177/59 92 12/02/18 16:00 98.3 F 74 14 138/75 91 12/02/18 15:04 98.3 F 74 14 138/75 91 Intake and Output 12/02/18 12/02/18 12/03/18 13:59 21:59 05:59 Intake Total 1400 571 Output Total 550 250 Balance 850 321 Intake: IV 100 21 Sodium Chloride 0.9% 1,000 ml @ 21 125 mls/hr IV .Q8H [facility] Rx#: [id number] Oral 550 IV - Manual Only 1300 Output: Void Amount 450 250 Estimated Blood Loss 100 Other: Meal [place] Percent of Meal Consumed 100% Feeding Ability Independent Urine Appearance Clear Clear Urine Color Light Celi Light Celi Urine Odor Strong Strong Weight 224 lb Patient Weight 12/03/18 05:59 Weight 224 lb Intake & Output: Intake & Output 12/02/18 12/02/18 12/03/18 13:59 21:59 05:59 Intake Total 1400 571 Output Total 550 250 Balance 850 321 Weight 224 lb Intake: IV 100 21 Sodium Chloride 0.9% 1,000 ml @ 21 125 mls/hr IV .Q8H [facility] Rx#: [id number] Oral 550 IV - Manual Only 1300 Output: Void Amount 450 250 Estimated Blood Loss 100 Other: Meal [place] Percent of Meal Consumed 100% Feeding Ability Independent Urine Appearance Clear Clear Urine Color Light Celi Light Celi Urine Odor Strong Strong Incision: Yes healing Incision clean and dry: Yes Dressing: Yes clean, Yes dry, Yes intact Weight bearing status: non Neurological exam IM: Yes alert, Yes normal gait, Yes oriented X3, Yes neurovascular intact Extremities exam IM: No calf tenderness, Yes Foot pink and warm, Yes neurovascular intact - Labs CBC & BMP: 12/02/18 15:48 12/02/18 15:48 Labs: 12/03/18 12/02/18 04:40 15:48 Hgb Pending 13.9 Hct Pending 42.5 Assessment and Plan (1) History of shoulder surgery pod 1 s/p hwr left shoulder nwb sling pain control home today Status: Acute
[2018-12-03] MEDS: ceFAZolin 1 GM VIAL IV SCH (06:55)
--- NOTE | 2018-12-03 07:31 | Operative Note ---
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 PROCEDURE: Hardware removal left shoulder of humeral and glenoid components. SURGEON: Eric George MD FOUNDRY OPERATOR: Ashley Loja PA-C ANESTHESIA: General. FINDINGS: Dislocated anteriorly reverse total shoulder arthroplasty on the left. INDICATIONS: This is a 48-year-old female who has had multiple surgeries on the left shoulder including revision left total shoulder a week ago for instability. She came into the office 1 week out and it was found to be dislocated again. I talked about different options including hardware removal with essential Girdlestone procedure versus revision to a CTA head. She wished to proceed with surgical intervention. The risks and benefits were discussed with the patient in detail including, but not limited to, the risks of anesthesia, problems with the heart or lungs related to anesthesia, infection, compromise or injury to the nerves and blood vessels, deep venous thrombosis, pulmonary embolism, pneumonia, continued pain after surgery, worsening pain or symptoms after surgery, swelling, loss of motion, need for repeat surgery, hardware failure, re-tear or failure of repair site, malunion, nonunion, and hardware pain requiring future removal. OPERATION IN DETAIL: The patient was seen preoperatively where site and side were properly identified and marked, and all questions were answered. She was then transferred to the operating room and given 2 grams Ancef and general anesthesia was administered without complication. I made an incision through the old incision and subcutaneous tissue. Bone windows were created medially and laterally. I dissected down through the deltopectoral interval and down to the joint, which was dislocated but there was some fluid and I cultured this. Antibiotics were given after the culture. We removed the polyethylene component as well as the two spacers. We retained the humeral stem. I then placed retractors and came down to the glenoid. We removed the glenosphere followed by the four screws and then the metaglene. I thoroughly irrigated. The bone and the glenoid were intact and we did not lose much bone, taking out the metaglene. I placed 3 mL DBX bone paste into the bone holes. We again thoroughly irrigated. I felt that I could not take out the humeral stem because it was cemented and we would have taken out most of the proximal humerus with it. I placed a CTA head. I took this through range of motion down with the arm in adduction. She had good range of motion but was in abduction and with internal rotation it did clunk and pop out. It was reduced but I did not feel this would be adequate for her activities, so I replaced the polyethylene liner, which was in place and removed at +6 and this was again taken through range of motion. I felt this would lessen the impact on the glenoid rather than the metal stem and cup. At this point it was relatively stable. We thoroughly irrigated, closed the deltopectoral interval with 0 Vicryl and subcutaneous layer was closed with 3-0 Monocryl, skin closed with karri. She was dressed with Xeroform 4x4, ABD, and Metapore tape. She was placed back into her shoulder immobilizer. She was extubated, transferred to a stretcher and taken to the PACU in stable condition. SPECIMENS: Culture x1. COMPLICATIONS: None. DRAINS: None. DISPOSITION: To PACU in stable condition. DOMINIK:sterling Job ID: [id number] Doc ID: [id number] Eric George MD
--- NOTE | 2018-12-03 07:43 | XRay Report ---
HISTORY: Revised left shoulder prosthesis FINDINGS: The pre-existing shoulder prosthesis has been reviewed removed and replaced with a new prosthesis. The prosthesis is well-positioned. There is an old fracture fragment adjacent to the neck of the prosthetic shaft. The fragment measures 6 x 14 mm. This was seen on 06/17/18. No new fracture has developed. There is atelectasis in the basilar segments of the left lower lobe. IMPRESSION: Well-positioned newly inserted left shoulder prosthesis Interpreted and Authenticated by: Pradeep Okeefe 12/03/18
--- NOTE | 2018-12-03 08:42 | XRay Report ---
HISTORY: Shortness of breath FINDINGS: There are thick bands of atelectasis in both lung bases adjacent to the diaphragms. The mid and upper lung maloney are clear. The heart size and pulmonary vasculature are normal. Lateral view shows small bilateral pleural effusions causing blunting of the posterior costophrenic sulci. The prosthetic left humeral head is subluxed anteriorly, inferiorly and medial to the glenoid. IMPRESSION: Discoid atelectasis in both lung bases and very small bilateral pleural effusions. Interpreted and Authenticated by: Pradeep Okeefe 12/03/18
[2018-12-03] MEDS: DOCUSATE SODIUM 100 MG CAPSULE PO SCH ×2 (09:16→20:30)
[2018-12-03] MEDS: clonazePAM 1 MG TABLET PO SCH ×2 (09:16→20:30)
[2018-12-03] MEDS: risperiDONE 1 MG TABLET PO SCH ×3 (09:16→20:30)
[2018-12-03] MEDS: POTASSIUM CHLORIDE 20 MEQ TABLET PO SCH (09:16)
[2018-12-03] MEDS: DOXYCYCLINE HYCLATE 100 MG TABLET.ORL PO SCH (09:17)
[2018-12-03] MEDS: LACTOBACILLUS 1 CAPSULE PO SCH (09:17)
[2018-12-03] MEDS: BENZTROPINE 1 MG TABLET PO SCH ×2 (09:17→20:30)
[2018-12-03] MEDS: Oxcarbazepine [Trileptal] 600 MG PO SCH ×2 (09:18→20:30)
[2018-12-03] MEDS: FLUTICASONE/SALMETEROL 500/50 INHALER #14 INH SCH (09:18)
--- NOTE | 2018-12-03 10:05 | Internal Medicine Consult Note ---
Medical - CN: HPI - Data of Consult Consult date: 12/03/18 Requesting physician: Gurdeep George Primary Care Provider: Anisha Ramirez Family Provider: Melvi Mabry - Consult Narrative Reason for consult: Evaluation of hypoxia History of present illness: Ms. Lawrence is a 48 year old F with a history of schizoaffective disorder, tobacco abuse, chronic hypoxic respiratory failure as well as history of right humeral fracture with failed healing, failed total shoulder and reverse total shoulder, who had hardware removal yesterday evening by Dr. George. The patient normally is on oxygen at her living facility between 2 and 5 L/m by nasal cannula. She also continues to smoke, smokes pipe tobacco currently. She has underlying COPD and is on Advair, DuoNeb and as needed albuterol. Postoperatively she was requiring up to 11 L via nasal cannula to maintain her saturations in the low 90s. That was last evening. Some improved overnight, she is now on 2-4 L variably. She had similar hypoxemia after prior surgery here in the last few weeks. She seemed to recover to baseline by the next day. The patient does have some dyspnea with exertion. She's had no cough or sputum production. No chest pain/tightness/squeezing. No fever or chills. No nausea or vomiting. Postoperative pain is controlled. She is hoping she can go home soon. CC: Gurdeep George All systems: reviewed and no additional remarkable complaints except as stated Medical - CN: PMH Medical history: COPD Chronic hypoxemic respiratory failure Tobacco abuse Schizoaffective disorder Anxiety disorder B12 deficiency Vitamin D deficiency. Surgical history: Status post right total shoulder with revision to reverse total shoulder with hardware removal. Pertinent family history: Father and a sibling with coronary artery disease Social history: Lives at a [facility]. Does not drink alcohol. Estimates she smokes about a pack per day, currently using pipe tobacco. Medical - CN: Meds Home Medications Medication Instructions Recorded Confirmed Type Acetaminophen [Tylenol] 500 mg PO Q6HP PRN 11/12/16 12/02/18 History Albuterol Sulfate [Proair Hfa] 2 puff INH Q6HP PRN 11/12/16 12/02/18 History Benztropine [Cogentin] 2 mg PO BID 11/12/16 12/02/18 History Calcium Carbonate [Tums] 500 mg CHEWED Q4HP PRN 11/12/16 12/02/18 History Calcium Carbonate/Vitamin D3 1 tab PO BID 11/12/16 12/02/18 History [Calcium 600 + Vit D Softgel] Cyanocobalamin [Vitamin B12] 1,000 mcg PO DAILY 11/12/16 12/02/18 History Fluticasone Propionate [Flonase] 2 spray INH DAILYP PRN 11/12/16 12/02/18 History Haloperidol Decanoate [Haldol 150 mg IM Q2W 11/12/16 12/02/18 History Decanoate 100] Ipratropium/Albuterol [Duoneb] 3 ml NEB BIDP PRN 11/12/16 12/02/18 History Montelukast [Singular] 10 mg PO HS 11/12/16 12/02/18 History OXcarbazepine [Trileptal] 600 mg PO BID 11/12/16 12/02/18 History Vitamin D3 10,000 unit PO FR@0900 11/12/16 12/02/18 History clonazePAM [Clonazepam] 1 mg PO BID 11/12/16 12/02/18 History traZODone HCL [Trazodone HCl] 50 mg PO HSP PRN 11/12/16 12/02/18 History traZODone HCL [Trazodone HCl] 150 mg PO HS 11/12/16 12/02/18 History Fluticasone/Salmeterol [Advair 1 puff INH BID 08/27/17 12/02/18 History 500-50 Diskus] Zolpidem [Ambien] 5 mg PO HSP PRN 08/27/17 12/02/18 History risperiDONE [Risperdal] 1 mg PO TID 08/27/17 12/02/18 History Ketoconazole 2% Top Crm [Nizoral 1 dose TOPICAL DAILYP PRN 06/17/18 12/02/18 History 2% Top Crm] Polyethylene Glycol 3350 [Miralax] 17 gm PO DAILYP PRN 06/17/18 12/02/18 History Doxycycline Hyclate [Morgidox] 100 mg PO DAILY 11/16/18 12/02/18 History Lactobacillus [Culturelle] 1 cap PO DAILY 11/16/18 12/02/18 History Potassium Chloride [Kdur] 20 meq PO QAMCC 11/16/18 12/02/18 History HYDROcodone/APAP 10/325MG [Petty 1 - 2 tab PO Q4H PRN #60 tab 11/24/18 12/02/18 Rx 10-325Mg] HYDROcodone/APAP 10/325MG [Petty 1 - 2 tab PO Q4H PRN #60 tab 12/02/18 Rx 10-325Mg] Allergies Allergy/AdvReac Type Severity Reaction Status Date / Time No Known Drug Allergies Allergy Verified 06/17/18 12:06 Medical - CN: Exam - Constitutional Vitals: Temp Pulse Resp BP Pulse Ox 97.9 F 87 18 127/77 92 12/03/18 07:25 12/03/18 07:25 12/03/18 07:25 12/03/18 07:25 12/03/18 07:25 General appearance: average body habitus, no acute distress - Head Head exam: Present: atraumatic, normocephalic - Eye Eye exam: Present: PERRL. Absent: conjunctival injection, scleral icterus - ENT ENT exam: Present: mucous membranes moist, normal exam - Neck Neck exam: Present: full ROM. Absent: meningismus, thyromegaly - Respiratory Additional comments: Diminished at bases, a few rales which improve with deep respirations, rare end expiratory wheeze, respirations are unlabored - Cardiovascular Additional comments: Regular rate and rhythm, 1/6 systolic murmur at the upper right sternal border. No peripheral edema. Carotid pulses 2+ without bruits. - GI/Abdominal GI/Abdominal exam: Present: normal bowel sounds, soft. Absent: guarding, tenderness - Extremities Exam Additional comments: Right upper extremity and shoulder immobilizer. Bloody oozing from surgical wound. Radial pulse 2+, purchase order checker intact. No other gross joint abnormalities and otherwise normal range of motion - Neurological Exam Neurological exam: Present: alert, altered, CN II-XII intact, oriented X3. Abse nt: motor sensory deficit - Psychiatric Psychiatric exam: Present: flat affect - Skin Skin exam: Present: dry, normal color, warm. Absent: cyanosis Medical - CN: Result - Labs CBC & Chem 7: 12/03/18 04:40 12/02/18 15:48 Labs: Short CBC 12/02/18 12/03/18 Range/Units 15:48 04:40 WBC 6.0 (4.5-11.0) K/mcL Hgb 13.9 13.0 (12.0-15.0) g/dL Hct 42.5 40.1 (36.0-48.0) % Plt Count 294 (140-440) K/mcL BMP 12/02/18 15:48 Sodium 125 L Potassium 4.3 Chloride 84 L Carbon Dioxide 34 H BUN 4 L Creatinine 0.5 L Glucose 106 H Calcium 9.3 Urine 12/02/18 Range/Units 16:43 Urine Color Yellow Urine Appearance Hazy Urine pH 8.0 (5.0-9.0) Ur Specific [place] 1.010 (1.000-1.035) Urine Protein Neg (NEG) mg/dL Urine Glucose (UA) Negative (NEG) mg/dL - Imaging and Cardiology Chest x-ray Status: image reviewed by me Additional comments: IMPRESSION: Discoid atelectasis in both lung bases and very small bilateral pleural effusions. Medical - CN: A/P (1) Acute and chronic respiratory failure with hypoxia Status: Acute - Narrative A/P Narrative: 48-year-old female with schizoaffective disorder, tobacco abuse and COPD on chronic oxygen presenting with worsening hypoxemia postoperatively. Acute on chronic hypoxic respiratory failure. Has improved overnight. Suspect multifactorial from her underlying lung disease, the effects of sedatives and surgery with relative hypoventilation. Chest radiograph this morning shows very significant discoid atelectasis and she has decreased breath sounds at the bases. Encouraged her to use her incentive spirometer. Oxygen requirements now appeared to be back towards normal. Recommendation: -Continue with aggressive pulmonary toilet -Advair scheduled, as needed albuterol -Do not think she needs steroids -From a pulmonary standpoint, stable for discharge back to her living facility Hyponatremia. This appears to be chronic and stable. Recommendation: Nothing further Schizoaffective disorder. Stable. Recommendation: Continue with her home medications Tobacco abuse. Smoking cessation counseled, though historically this has been difficult to accomplish with underlying mental health issues. Postoperative bleeding from surgical site. Per orthopedics
[2018-12-03 10:31] LABS: ALT/SGPT 9 U/l (0-40); Albumin/Globulin Ratio 1.4 (1.0-2.3); Alkaline Phosphatase 64 U/L (39-117); Bilirubin,Direct < 0.2 mg/dL (0.0-0.3); Blood Urea Nitrogen 7 mg/dl (6-20); Gamma Glutamyl Transpeptidase 22 U/L (5-36)
[2018-12-03] MEDS: IPRATROPIUM/ALBUTEROL 3 ML AMPUL.NEB NEB SCH ×4 (13:07→23:26)
[2018-12-03] MEDS: traZODone HCL 100 MG TABLET PO SCH (20:29)
[2018-12-03] MEDS: SENNOSIDES 1 TABLET PO SCH (20:30)
[2018-12-03] MEDS: MONTELUKAST 10 MG TABLET PO SCH (20:30)
[2018-12-04] MEDS: FLUTICASONE/SALMETEROL 500/50 INHALER #14 INH SCH ×2 (01:28→08:56)
[2018-12-04] MEDS: 0.9 % SODIUM CHLORIDE 10 ML SYRINGE IV SCH (05:27)
[2018-12-04] MEDS: IPRATROPIUM/ALBUTEROL 3 ML AMPUL.NEB NEB SCH (07:21)
--- NOTE | 2018-12-04 08:33 | Discharge Summary ---
Providers - Providers Patient information: Note initiated : 12/04/18 at 8:31 am Service Date, if different from initiated Date: [] Patient: Huma Lawrence 48 y/o F admitted on 12/02/18 for Left Shoulder Hardware Removal . Chief Complaint: [POD #2 s/p left reverse total shoulder revision Patient is doing much better today. She developed a hematoma post op that leaked a lot yesterday. Nurses were able to adequately compress the site and slow the flow. Pain noble she is doing well. No CP, SOB, numbness or tingling.] Discharge date: 12/04/18 Hospitalization Hospital course: Patient brought to OR on evening of 12/02/18 for left reverse total shoulder revision. Surgery was without complication. She was admitted overnight for post op care. She developed a hematoma day #2 and was leaking significantly. Stasis was obtained through compression. She will d/c back to her adult long-term today if nursing staff can accommodate dressing changes. She will f/u in 10-14 days for PO care in clinic. Discharge diagnosis: failure of total shoulder Exam - Exam Incision healing: Yes Incision draining: No Incision red: No Incision swollen: No Incision inflamed: No Clean and dry: Yes Weight bearing status: none Ortho Discharge Plan - General - Patient Instructions Diet: Regular Diet Activity: non weight bearing Dressing Care: Other (compression dressings for next 5-7 days. Change daily to ensure adequate leak control) Patient Education: Hydrocodone/Acetaminophen (By mouth), Hardware Removal (DC) Additional Instructions: Discharge Instructions: No weight bearing with left arm/hand. Keep your arm in the immobilizer except for showering. Take your prescription to [facility] any medication. You have the Aquacel Ag dressing, leave in place for 7 days then remove. If dressing becomes soiled (turns black), remove and use gauze 4x4 dressing and silvasorb ointment and change daily. Keep incision clean and dry. You may start showering on post op day #2. To avoid constipation while taking any narcotic pain medication, take an over th e counter stool softener/laxative. Use ice packs as directed, on for 20 minutes at a time throughout the day. This and elevation will help with pain and swelling. Call your physician for fevers above 100.5 or pain not controlled by medication. Your prescriptions are with your discharge information. Some medications were electronically transmitted to your pharmacy of choice. - Follow Up Plan Follow Up Appointments: Gurdeep George MD [Physician] - 12/16/18 10:40 am Disposition: Home, Self-Care Prognosis: Good Rehab Potential: Good I certify that the patient requires SNF services: No - Orders For Discharge Prescriptions: HYDROcodone/APAP 10/325MG [[place] 10-325Mg] 1 - 2 tab PO Q4H PRN #60 tab PRN Reason: Pain Additional Discharge Orders: Brace/Splint Location: None Selected Pending Studies Resuscitation Status Full Code Diet Regular Diet Start FriDec 02 1901 Acetaminophen (Tylenol) 500 mg PO Q6HP PRN PRN Reason: Pain Last Admin: 12/03/18 00:15 Dose: 500 mg Documented by: KEDAR Hydrocodone Bitart/Acetaminophen ([place] 10/325mg) 0 tab PO Q4HP PRN PRN Reason: PAIN LEVEL 3-6 Last Admin: 12/03/18 20:30 Dose: 1 tab Documented by: Admin: 12/03/18 17:56 Dose: 1 tab Documented by: Admin: 12/03/18 13:52 Dose: 1 tab Documented by: Admin: 12/03/18 09:24 Dose: 1 tab Documented by: Admin: 12/03/18 05:36 Dose: 1 tab Documented by: KEDAR Albuterol/Ipratropium (Duoneb) 3 ml NEB [id number] [facility] Last Admin: 12/04/18 07:21 Dose: 3 ml Documented by: Admin: 12/03/18 23:26 Dose: 3 ml Documented by: Admin: 12/03/18 19:52 Dose: 3 ml Documented by: Admin: 12/03/18 14:58 Dose: 3 ml Documented by: Admin: 12/03/18 13:07 Dose: Not Given Documented by: DEVIN Benztropine Mesylate (Cogentin) 2 mg PO BID [facility] Last Admin: 12/03/18 20:30 Dose: 2 mg Documented by: Admin: 12/03/18 09:17 Dose: 2 mg Documented by: Admin: 12/02/18 22:37 Dose: 2 mg Documented by: KEDAR Clonazepam (Klonopin) 1 mg PO BID [facility] Last Admin: 12/03/18 20:30 Dose: 1 mg Documented by: Admin: 12/03/18 09:16 Dose: 1 mg Documented by: [email or web address] Admin: 12/02/18 22:20 Dose: 1 mg Documented by: KEDAR Docusate Sodium (Colace) 100 mg PO BID [facility] Last Admin: 12/03/18 20:30 Dose: 100 mg Documented by: Admin: 12/03/18 09:16 Dose: 100 mg Documented by: [email or web address] Admin: 12/02/18 22:20 Dose: 100 mg Documented by: KEDAR Doxycycline Hyclate (Doxycycline Hyclate) 100 mg PO DAILY [facility] Last Admin: 12/03/18 09:17 Dose: 100 mg Documented by: [facility] Ketorolac Tromethamine (Toradol) 15 mg IV Q6HP PRN PRN Reason: Pain Stop: 12/04/18 19:02 Last Admin: 12/03/18 23:18 Dose: 15 mg Documented by: AMAIRANI Lactobacillus Rhamnosus (Culturelle) 1 cap PO DAILY [facility] Last Admin: 12/03/18 09:17 Dose: 1 cap Documented by: [facility] Methocarbamol (Robaxin) 750 mg PO Q6HP PRN PRN Reason: Muscle Spasm Last Admin: 12/03/18 00:15 Dose: 750 mg Documented by: KEDAR Montelukast Sodium (Singular) 10 mg PO HS [facility] Last Admin: 12/03/18 20:30 Dose: 10 mg Documented by: Admin: 12/02/18 22:20 Dose: 10 mg Documented by: KEDAR Oxcarbazepine [ (Trileptal] 600 Mg) 1 dose PO BID [facility] Last Admin: 12/03/18 20:30 Dose: Not Given Documented by: Admin: 12/03/18 09:18 Dose: Not Given Documented by: [email or web address] Admin: 12/02/18 22:26 Dose: Not Given Documented by: KEDAR Potassium Chloride (Kdur) 20 meq PO QAMCC [facility] Last Admin: 12/03/18 09:16 Dose: 20 meq Documented by: [facility] Risperidone (Risperdal) 1 mg PO TID [facility] Last Admin: 12/03/18 20:30 Dose: 1 mg Documented by: Admin: 12/03/18 14:38 Dose: 1 mg Documented by: [facility] Admin: 12/03/18 09:16 Dose: 1 mg Documented by: [facility] Admin: 12/02/18 22:20 Dose: 1 mg Documented by: KEDAR Fluticasone/Salmeterol (Advair 500-50 Diskus) 1 puff INH BID [facility] Last Admin: 12/04/18 01:28 Dose: Not Given Documented by: Admin: 12/03/18 09:18 Dose: Not Given Documented by: [facility] Admin: 12/02/18 22:26 Dose: Not Given Documented by: KEDAR Senmorena (Senokot) 2 tab PO HS [facility] Last Admin: 12/03/18 20:30 Dose: 2 tab Documented by: Admin: 12/02/18 22:20 Dose: 2 tab Documented by: KEDAR Sodium Chloride (Saline Flush) 10 ml IV Q8 [facility] Last Admin: 12/04/18 05:27 Dose: Not Given Documented by: Admin: 12/03/18 23:19 Dose: 10 ml Documented by: Admin: 12/03/18 13:52 Dose: 10 ml [facility] Admin: 12/03/18 05:39 Dose: 10 ml Documented by: Admin: 12/02/18 22:27 Dose: 10 ml Documented by: KEDAR Trazodone HCl (Desyrel) 50 mg PO HSP PRN PRN Reason: Insomnia Last Admin: 12/03/18 23:19 Dose: 50 mg Documented by: AMAIRANI Trazodone HCl (Desyrel) 150 mg PO HS [facility] Last Admin: 12/03/18 20:29 Dose: 150 mg Documented by: Admin: 12/02/18 22:20 Dose: 150 mg Documented by: KEDAR Shift Summary 12/04/18 05:00 Shift Summary by Sheryl Land Patient slept off and on this shift. Up with standby assist to the bathroom, slightly unsteady. Medicated with [place] 1tab x1 and Toradol IV x1. Also had PRN Desyrel on top of her HS. SCDs applied. IV on RAC and left foot kept saline locked. Oxygen increased to 4L nasal cannula, desats to 85% on 2.5 L nasal cannula- now 91% on 4L nc. Left shoulder compression dressings CDI. Left arm immobilizer in place. Ice pack applied. SBP 140-160's mmHg. Initialized on 12/04/18 05:00 - END OF NOTE
[2018-12-04] MEDS: LACTOBACILLUS 1 CAPSULE PO SCH (08:50)
[2018-12-04] MEDS: POTASSIUM CHLORIDE 20 MEQ TABLET PO SCH (08:50)
[2018-12-04] MEDS: BENZTROPINE 1 MG TABLET PO SCH (08:51)
[2018-12-04] MEDS: risperiDONE 1 MG TABLET PO SCH (08:52)
[2018-12-04] MEDS: DOCUSATE SODIUM 100 MG CAPSULE PO SCH (08:52)
[2018-12-04] MEDS: clonazePAM 1 MG TABLET PO SCH (08:52)
[2018-12-04] MEDS: Oxcarbazepine [Trileptal] 600 MG PO SCH (08:56)
[2018-12-04] MEDS: DOXYCYCLINE HYCLATE 100 MG TABLET.ORL PO SCH (10:45)
[2018-12-16] MEDS ORDERED: HALOPERIDOL DECANOATE 150 MG IM SCH (09:00)
== END 2018-12-04 11:05 | disposition home or self-care (01) | DRG 483 ==
LOC: MEDSUR 15:04
PROVIDERS: ADMIT Orthopaedic Surgery Sports Medicine; ATTEND Orthopaedic Surgery Sports Medicine